=== PATIENT | female | born 1945 | race Caucasian/White ===

== ENCOUNTER → 2016-10-14 | Outpatient (CLI) | payer MEDICARE, BC ==
[2016-05-18 13:25] VITALS: BP 131/67
[~2016-10-14] MED LIST: ASPI325T4 PO; FEXO180T5 PO; GLIM4TAB2 PO; IBUP-1060 PO; LISI10TA2 PO; METF850T2 PO; MULT-245 PO; SIMV40TA3 PO
--- NOTE | 2016-10-15 15:00 | SLEEP ---
DATE OF STUDY: 10/14/2016 ATTENDING PHYSICIAN: Dr. Gwendolyn Delgadillo. The patient is 71 years old, who weighs 189 pounds with a BMI of 32. The patient's Media score was 9. Split night study was performed at [facility]. During the night of the study, the patient spent 414 minutes in the bed and slept for 338 minutes with a sleep efficiency of 81%. Sleep latency was 29 minutes with a REM latency of 217 minutes. Overall, sleep architecture showed normal stage 1 sleep, increased stage 2 sleep, normal slow wave and normal REM sleep. During the initial diagnostic portion of the study, the patient slept for 145 minutes. During this time, there were 13 obstructive apneas, no mixed and 1 central apneas. There were 143 hypopneas. The patient's apnea above the index was 65 per hour. The patient did not have REM sleep or supine sleep during the diagnostic portion. Review of EKG revealed a mean heart rate of 72 beats per minute, no sustained arrhythmias were observed. PLMS were seen at an index of 4 per hour and none caused EEG arousals. Mean oxygen saturation remained around 89% with the lowest of 82%. 91% of time, oxygen saturation remained between 80% and 89%. The patient met the criteria for CPAP initiation. It was started at 5 cm of water and titrated up to 15 cm of water. At the final pressure, the patient had 59 minutes of sleep. Supine sleep was seen throughout as well as REM sleep was observed. The patient's AHI was reduced to 0 per hour. Oxygen saturations remained in the mid-to-high 80s with the lowest saturation of 86%. The patient used small size nasal pillows. IMPRESSION: 1. Severe sleep apnea-hypopnea syndrome at an apnea-hypopnea index of 65 per hour. 2. Nocturnal hypoxia secondary to combination of an obstructive sleep apnea and suspected obesity hypoventilation syndrome. Not completely resolved with CPAP. 3. No clinically significant periodic limb movements during sleep. RECOMMENDATIONS: 1. CPAP at 15 cm of water completely eliminated the patient's sleep apnea and should be used on a nightly basis. 2. I would recommend a nocturnal oximetry study at the final pressure as an outpatient to assess the need for supplemental oxygen. 3. Weight loss is advised. 4. Avoid GOLD LEAF LAYER depressants. 5. Caution regarding driving until symptoms of sleep apnea resolve with the use of CPAP. KWAME LEZAMA MD DR: DAISY/shiva JOB#: [id number] / [id number] GWENDOLYN Yanes MD
== END | disposition home or self-care (01) ==
LOC: RT 18:42
PROVIDERS: ATTEND Physician Assistant
DX: G47.33 Obstructive sleep apnea (adult) (pediatric) (principal)
CPT/HCPCS: 95811

== ENCOUNTER → 2016-10-29 | Outpatient (CLI) | payer MEDICARE, BC ==
[2016-05-18 13:25] VITALS: BP 131/67
[~2016-10-29] MED LIST changes: +REGADENOSON 0.4 MG/5 ML DISP.SYRIN. IV ONE
--- NOTE | 2016-10-29 11:28 | CARD ---
APPROVED REPORT EXAM: Two-dimensional and M-mode echocardiogram with Doppler and color Doppler. Other Information Quality : Average Rhythm : NSR INDICATION Cardiac Disease: CAD 2D DIMENSIONS RVDd3.4 (2.9-3.5cm)Left Atrium(2D)3.9 (1.6-4.0cm) IVSd1.0 (0.7-1.1cm)Aortic Root(2D)2.7 (2.0-3.7cm) LVDd3.7 (3.9-5.9cm)LVOT Diameter2.0 (1.8-2.4cm) PWd1.0 (0.7-1.1cm)LVDs2.7 (2.5-4.0cm) FS (%) 26.8 %SV31.8 ml LVEF(%)53.1 (>50%) Aortic Valve AoV Peak Marvin.128.4cm/sAoV VTI21.2cm AO Peak GR.6.6mmHgLVOT Peak Marvin.110.4cm/s AO Mean GR.3mmHgAVA (VMAX)2.72cm2 Mitral Valve MV E Bepbmkzt72.3cm/sMV DECEL ZFSA185pc MV A Svctvvhi418.8cm/sE/A Ratio0.6 MV A Bigkiqlm045tl Pulmonary Vein S1 Qvnxpdwz73.0cm/sD2 Rdrcvjbf57.9cm/s PVa gjqwvviq45nakv LEFT VENTRICLE The left ventricle is normal size. There is normal left ventricular wall thickness. Left ventricle sy stolic function is normal. The Ejection Fraction is 55%. There is normal LV segmental wall motion. Ti ssue Doppler imaging reveals mild left ventricular diastolic dysfunction. Transmitral Doppler flow pa ttern is Grade I-abnormal relaxation pattern. There is no ventricular septal defect visualized. RIGHT VENTRICLE The right ventricle is normal size. The right ventricular systolic function is normal. ATRIA The left atrium size is normal. The right atrium size is normal. The interatrial septum is intact wit h no evidence for an atrial septal defect or patent foramen ovale as noted on 2-D or Doppler imaging. AORTIC VALVE The aortic valve is normal in structure and function. The aortic valve is trileaflet. Doppler and Col or Flow revealed no significant aortic regurgitation. There is no significant aortic valvular stenosi s. MITRAL VALVE The mitral valve is normal in structure and function. There is no mitral valve stenosis. Doppler and Color Flow revealed no mitral valve regurgitation noted. TRICUSPID VALVE The tricuspid valve is not well visualized. Doppler and Color Flow revealed no tricuspid valve regurg itation noted.Unable to assess PA pressure. There is no tricuspid valve stenosis. PULMONIC VALVE The pulmonic valve is not well visualized. Doppler and Color Flow revealed no pulmonic valvular regur gitation. There is no pulmonic valvular stenosis. GREAT VESSELS The aortic root is normal in size. Normal pulmonary venous flow (Doppler). The IVC is normal in size and collapses >50% with inspiration. PERICARDIAL EFFUSION There is no evidence of significant pericardial effusion. Critical Notification Critical Value: No <Conclusion> Left ventricle systolic function is normal. The Ejection Fraction is 55%. There is normal LV segmental wall motion. Transmitral Doppler flow pattern is Grade I-abnormal relaxation pattern. There is no evidence of significant pericardial effusion.
--- NOTE | 2016-10-29 12:55 | RAD ---
APPROVED REPORT Test Type: Pharmacological Stress Nurse/Tech: adan morrissey Test Indications: CAD Cardiac History: AFIB, CARDIAC STENTS, HTN, SEE EHR Medications: SEE EHR Medical History: SMOKER, DIABETES, SEE EHR Resting ECG: SR WITH FIRST DEGREE BLOCK Resting Heart Rate: 88 bpm Resting Blood Pressure: 115/70mmHg Pretest Chest Pain: No chest pain Nurse/Tech Notes LUNGS SOUNDS DIMINISHED, S1S2 WNL. Consent: The procedure was explained to the patient in lay terms. Informed consent was witnessed. Mukesh eout was entered into MySQL. History and Stress Test performed by WILL Camargo, DARELL (R) (N) Pharm. Details Pharmacologic stress testing was performed using 0.4mg per 5ml of regadenoson given intravenously ove r 7-10 seconds. Stress Symptoms COUGH INITIALLY, HEADACHE. POST EXERCISE Reason for Termination: Infusion complete Max HR: 116 bpm Max Blood Pressure: 138/63mmHg Chest Pain: No. Arrhythmia: No. ST Change: No. INTERPRETATION Stress EKG Conclusion: Baseline EKG showed sinus rhythm. No ischemic changes at peak stress. No arr hythmias. Imaging Protocol IMAGE PROTOCOL: Rest Tc-99m/stress Tc-99m 1 day Rest: Stress: Viability: Radiopharm.Tc99m VtmjgpselOk82q Sestamibi Rzra13dRz 33.6mCi Img Date 10/29/2016 10/29/2016 Inj-Img Cuqj23rqn. 45min. Rest Admin Site:IV - Right AntecubitalAdministrator:RT Tee (R)(N) Stress Admin Site: IV - Right AntecubitalAdministrator: WILL Camargo, DARELL (R)(N) STRESS DATA End Diast. Vol.59.0mlAv. Heart Nyya198.0bpm End Syst. Vol.8.0mlCO Index BSA0.0L/min Myocardial Emdb510.0gEject. Dydaqpcz92.0% Stress Rates Pk. Fill Rate6.52EDV/secLVtime Pk. Fill 154.09msec Pk. Empty Rate7.67ESV/secLVtime Pk. Eject92.75msec 06/16 Pk. Fill1.62EDV/sec Stress Scores Regional WT1.00Summed WT8.00 Regional WM0.00Summed WM2.00 Study quality was good. Left Ventricular size was Normal at Rest and Stress. Lung uptake was Normal. Left Ventricular ejection fraction is 86%. The rest and stress images show normal perfusion, normal contraction and thickening. LV Perf. Quant 17 Seg. SSS0.00 17 Seg. SRS0.00 17 Seg. SDS0.00 Stress Defect Extent (% LAD)0.00Rest Defect Extent (% LAD)0.00Rev. Defect Extent (% LAD)0.00 Stress Defect Extent (% LCX) 0.00Rest Defect Extent (% LCX)0.00Rev. Defect Extent (% LCX)0.00 Stress Defect Extent (% RCA)0.00Rest Defect Extent (% RCA)0.00Rev. Defect Extent (% RCA)0.00 Stress Defect Extent (% JARRETT)0.00Rest Defect Extent (% JARRETT)0.00Rev. Defect Extent (% JARRETT)0.00 Conclusion 1. Regadenoson cardioisotope stress test did not show any evidence of ischemia or infarct. 2. Normal left ventricular systolic function with ejection fraction calculated at 86%. 3. Low risk for cardiac events.
== END | disposition home or self-care (01) ==
LOC: NM 08:32
PROVIDERS: ATTEND Internal Medicine Cardiovascular Disease
DX: I25.10 Atherosclerotic heart disease of native coronary artery without angina pectoris (principal)
CPT/HCPCS: 78452; 93017; 93306; 96374; 96375; 96376; A9500; J2785

== ENCOUNTER → 2018-04-28 | Outpatient (CLI) | payer MEDICARE, BC ==
[2016-05-18 13:25] VITALS: BP 131/67
[~2018-04-28] MED LIST changes: -ASPI325T4 PO; +ASPI325T8 PO; +FEXO180T16 PO; -FEXO180T5 PO; -METF850T2 PO; +METF850T8 PO; -REGADENOSON 0.4 MG/5 ML DISP.SYRIN. IV ONE
--- NOTE | 2018-04-28 11:10 | CARD ---
MR#: [id number] Date of Study: 04/28/2018 Ordering Physician: JOAQUINA BRISENO, Referring Physician: JOAQUINA BRISENO Tech: Shasta Mack RDCS APPROVED REPORT EXAM: Two-dimensional and M-mode echocardiogram with Doppler and color Doppler. Other Information Quality : Fair Technically limited study due to body habitus. INDICATION Cardiac Disease: CAD RISK FACTORS Obesity Smoking 2D DIMENSIONS RVDd2.9 (2.9-3.5cm)Left Atrium(2D)2.7 (1.6-4.0cm) IVSd1.0 (0.7-1.1cm)Aortic Root(2D)2.7 (2.0-3.7cm) LVDd3.9 (3.9-5.9cm)LVOT Diameter2.0 (1.8-2.4cm) PWd1.0 (0.7-1.1cm)LVDs2.0 (2.5-4.0cm) FS (%) 30.0 %SV51.7 ml LVEF(%)60.0 (>50%) Aortic Valve AoV Peak Marvin.154.0cm/sAoV VTI25.9cm AO Peak GR.9.5mmHgLVOT Peak Marvin.138.4cm/s LVOT VTI 23.03cmAO Mean GR.5mmHg DWAYNE (VMAX)2.00fr5ADV (VTI)2.78cm2 Mitral Valve MV E Rvokokjy31.7cm/sMV DECEL DWSP341pz MV A Bblqljdw37.2cm/sMV NGY74ay E/A Ratio0.6MVA (PHT)4.80cm2 TDI E/Lateral E'7.2E/Medial E'10.0 Pulmonary Vein S1 Hfnkmdlp16.9cm/sD2 Dsdlvufh93.6cm/s LEFT VENTRICLE The left ventricle is normal size. There is normal left ventricular wall thickness. The left ventricu lar systolic function is normal and the ejection fraction is within normal range. The Ejection Fracti on is 60-65%. There is normal LV segmental wall motion. Transmitral Doppler flow pattern is Grade I-a bnormal relaxation pattern. RIGHT VENTRICLE The right ventricle is normal size. The right ventricular systolic function is normal. ATRIA The left atrium size is normal. The right atrium size is normal. The interatrial septum is intact wit h no evidence for an atrial septal defect or patent foramen ovale as noted on 2-D or Doppler imaging. AORTIC VALVE Not well visualized. Doppler and Color Flow revealed no significant aortic regurgitation. There is no significant aortic valvular stenosis. MITRAL VALVE The mitral valve is calcified but opens well. There is no evidence of mitral valve prolapse. There is no mitral valve stenosis. Doppler and Color Flow revealed no mitral valve regurgitation noted. TRICUSPID VALVE Not well visualized. Doppler and Color Flow revealed no tricuspid valve regurgitation noted. There is no tricuspid valve stenosis. PULMONIC VALVE The pulmonic valve is not well visualized. Doppler and Color Flow revealed no pulmonic valvular regur gitation. There is no pulmonic valvular stenosis. GREAT VESSELS The aortic root is normal in size. The ascending aorta is normal in size. The IVC is normal in size a nd collapses >50% with inspiration. PERICARDIAL EFFUSION There is no evidence of significant pericardial effusion. Critical Notification Critical Value: No <Conclusion> The left ventricular systolic function is normal and the ejection fraction is within normal range. Th e Ejection Fraction is 60-65%. There is normal LV segmental wall motion. Technically difficult study Signed by : Higinio Francisco, Electronically Approved : 04/28/2018 11:08:53
--- NOTE | 2018-04-28 13:33 | RAD ---
MR#: [id number] Date of Study: 04/28/2018 Ordering Physician: JOAQUINA BRISENO, Referring Physician: JOAQUINA BRISENO, Tech: Debby Em, DEE, RVT, RTR APPROVED REPORT Patient Location: OUT-PATIENT Indications PAD Leg fatigue when walking;Occasional leg pain VELOCITY AND DOPPLER WAVEFORM ANALYSIS RIGHT cm/secWaveformSeverity LEFT cm/secWaveform Severity pCFA 269.9pCFA 229.7 dCFA 177.4dCFA Prof Fem Art. 113.4Prof Fem Art. 133.6 Fem Art Prox. 122.6Fem Art Prox. 171.2 Fem Art Mid. 120.3Fem Art Mid. 175.8 Fem Art Dist. 239.6Fem Art Dist. 277.6 Pop Art(AK) 70.1Pop Art(AK) 65.7 MATERIALS TECH Dist. 105.8PTA Dist. 77.3 Per Art Prox. 74.5Per Art Prox. 34.2 ENRIQUE Prox. 180.0ATA Prox. 56.0 DPA 40.9DPA 56.5 Findings Grayscale images of the bilateral lower extremity arterial vessels revealed diffuse atherosclerotic p laque of moderate degree. Spectral waveforms in the right common femoral artery are suggestive of more proximal stenosis of gurjit roximately 50%. The spectral waveforms in the right profunda, superficial femoral and popliteal arter ies demonstrate mild elevation suggestive of a proximally 50% stenosis. Below the knee there is three -vessel runoff with monophasic waveforms again suggestive of diffuse atherosclerotic disease but no f ocal stenosis is identified. On the left similar to the right there are elevated velocities in the common femoral artery suggestiv e of inflow disease in the external iliac artery of approximately 50%. The left superficial femoral a rtery has elevated velocities suggestive of 50% stenosis. Below the knee there is three-vessel runoff but with diminished blunted velocities. Critical Notification Critical Value: No <Conclusion> 1. Diffuse bilateral inflow and outflow disease of moderate degree. 2. Likely focal greater than 50% stenosis involving the left SFA. Signed by : Higinio Francisco, Electronically Approved : 04/28/2018 13:32:17
== END | disposition home or self-care (01) ==
LOC: ECHO 10:00
PROVIDERS: ATTEND Internal Medicine Cardiovascular Disease
DX: I25.10 Atherosclerotic heart disease of native coronary artery without angina pectoris (principal); I73.9 Peripheral vascular disease, unspecified; E66.9 Obesity, unspecified; F17.200 Nicotine dependence, unspecified, uncomplicated
CPT/HCPCS: 93306; 93923

== ENCOUNTER 2018-06-27 06:29 | Observation (INO) | payer MEDICARE, BC ==
[2018-06-27] VITALS (17 sets, daily range): BP systolic 124–179; BP diastolic 61–89
[~2018-06-27] VITALS: Ht 161.3 cm; Wt 84.1 kg
[2018-06-27] MEDS ORDERED: METF850T8 PO (06:58)
[2018-06-27] MEDS ORDERED: DICL75TA PO (06:58)
[2018-06-27] MEDS ORDERED: DILT180C29 PO (06:58)
[2018-06-27] MEDS ORDERED: ASPI-630 PO (06:58)
[2018-06-27 07:08] LABS: HEMATOCRIT 42.3 % (36.0-47.0); HEMOGLOBIN 14.7 g/dL (12.0-15.5); RED BLOOD COUNT 4.41 x10^6/uL (3.50-5.40); RED CELL DISTRIBUTION WIDTH 13.4 % (11.5-14.5); WHITE BLOOD COUNT 10.8 x10^3/uL (4.0-11.0)
[2018-06-27] MEDS ORDERED: IODIXANOL 320 MG/ML 100 ML VIAL. ONE (07:16)
[2018-06-27] MEDS ORDERED: LIDOCAINE 1% Multi-Dose 20 ML VIAL. ONE (07:16)
[2018-06-27] MEDS ORDERED: MIDAZOLAM HCL/PF 5 MG/5 ML VIAL. ONE (07:23)
[2018-06-27] MEDS ORDERED: HEPARIN for IV BOLUS 10,000 UNIT/10 ML VIAL. ONE ×2 (07:23→08:19)
[2018-06-27] MEDS ORDERED: fentaNYL PF VIAL 100 MCG/2 ML VIAL ONE ×2 (07:23→09:12)
[2018-06-27 07:26] LABS: CALCIUM 9.9 mg/dL (8.5-10.1); CREATININE 1.1 mg/dL (0.6-1.0); GFR 48.6; POTASSIUM 4.1 mmol/L (3.5-5.1); PROTHROMBIN TIME PATIENT 13.4 SEC (11.7-14.0)
[2018-06-27] MEDS ORDERED: MIDAZOLAM HCL/PF 5 MG/5 ML VIAL. IV ONE (07:30)
[2018-06-27] MEDS ORDERED: fentaNYL PF VIAL 100 MCG/2 ML VIAL IV ONE ×2 (07:30→10:15)
[2018-06-27] MEDS ORDERED: IODIXANOL 320 MG/ML 100 ML VIAL. IART ONE (07:30)
[2018-06-27] MEDS ORDERED: CONTRAST GIVEN. MC PRN (07:45)
[2018-06-27] MEDS ORDERED: LIDOCAINE 1% Multi-Dose 20 ML VIAL. INJ ONE (08:15)
[2018-06-27] MEDS ORDERED: dilTIAZem IV PUSH 25 MG/5 ML VIAL ONE (08:19)
[2018-06-27] MEDS ORDERED: NITROGLYCERIN 4 MG/20 ML SYRINGE for CATH LAB. ONE (08:19)
[2018-06-27] MEDS ORDERED: HEPARIN for IV BOLUS 10,000 UNIT/10 ML VIAL. IV ONE (08:30)
[2018-06-27] MEDS ORDERED: CLOPIDOGREL BISULFATE 75 MG TABLET ONE (09:23)
[2018-06-27] MEDS ORDERED: NITROGLYCERIN 200 MCG/2 ML SYRINGE FOR CATH/VASC LAB. IART ONE (09:30)
[2018-06-27] MEDS ORDERED: IV NORMAL SALINE 1000ML BAG 1,000 ML IV SCH (09:30)
[2018-06-27] MEDS ORDERED: NITROGLYCERIN 200 MCG/2 ML SYRINGE FOR CATH/VASC LAB. ONE (09:50)
--- NOTE | 2018-06-27 09:52 | CARD ---
MR#: [id number] Date of Study: 06/27/2018 Ordering Physician: JOAQUINA AGUILERA, Referring Physician: JOAQUINA AGUILERA Tech: Arminda Cha RTR APPROVED REPORT Technologist: Arminda Cha RTR Nurse: Mildred Briseno R.N. Procedure(s) performed: 1. Aortogram with bilateral lower extremity runoff 2. Successful orbital atherectomy/ELEVATOR CONSTRUCTOR/stent placement to the left superficial femoral artery Moderate Sedation time: 104 minutes INDICATION The indication(s) include : Peripheral vascular disease with claudication. PROCEDURE NARRATIVE After explaining the risks, benefits and alternative options, informed consent was obtained from julian ent. Patient was brought to the cardiac [facility] and her right groin was prepped and draped in the us ual fashion. 20 mL of 2% lidocaine was infiltrated into the skin and subcutaneous tissues for local a nesthesia. Arterial access was obtained in the right common femoral artery and a 5 Lebanese sheath was inserted. 5 Lebanese pigtail catheter was used to perform aortogram with bilateral lower extremity runo ff. The following findings were noted. FINDINGS 1. No significant stenosis involving the distal descending aorta 2. No significant stenosis involving bilateral common and external iliac arteries 3. No significant stenosis involving bilateral common femoral arteries 4. The left superficial femoral artery showed long 80-90% stenosis involving the proximal, mid and m id to distal segments. The right superficial femoral artery did not show any significant stenosis. 5. The popliteal arteries did not show any significant stenosis bilaterally. There is three-vessel r unoff below the knee in the proximal segments. The mid to distal segments were not well visualized du e to motion artifact. INTERVENTION The sheath in the right groin was exchanged to 45 cm 6 Lebanese destination sheath that was advanced ov er the aortic mariana with the help of across oval catheter and the tip was positioned in the left com mon femoral artery. The long lesion involving the left superficial femoral artery was crossed with a viper guidewire. Multiple orbital atherectomy passes were then performed using CSI 1.5 diamondback at herectomy catheter. The lesion was then dilated with a 5.5 x 1 50 mm Erickson [place] balloon. The wire was then exchanged to a 0.014 inch command wire and the proximal to midsegment of the left SFA was tr eated successfully with a 5.5 x 1 20 mm Erickson Supera self-expanding stent. Follow-up angiography rocío wed resolution of the stenosis to 0%. Patient tolerated the procedure well. Hemostasis was achieved using Perclose suture closure device. There were no immediate complications. Conclusion 1. Long 80-90% stenosis involving the left superficial femoral artery 2. Successful orbital atherectomy/ELEVATOR CONSTRUCTOR/stent placement to left SFA Recommendations 1. Aspirin 81 mg daily 2. Plavix 75 mg daily 3. Vascular risk factor modification including smoking cessation Signed by : Joaquina Aguilera, Electronically Approved : 06/27/2018 09:50:53
--- NOTE | 2018-06-27 09:54 | PDOC ---
MODERATE SEDATION ASSESSMENT RISKS/ALTERNATIVES Risks/Alternatives Risks and alternatives of this type of sedation and procedure discussed with: RISK/ALTERNATIVES: Patient H & P ON CHART H & P H & P on chart and reviewed for co-morbid conditions and appropriate labs. H&P ON CHART: Yes STATUS PREG STATUS ASSESSED: N/A MEDS/ALLERGIES REVIEWED Meds/Allergies Reviewed Medications and Allergies including time and route of recently administered narcotics and sedatives. MEDS/ALLERGIES REVIEWED: Yes ASA RATING ASA RATING: II AIRWAY ASSESSMENT Airway Assessment Airway patency, oral function limitations, presence of caps, crowns, dentures, partials, and ability to extend neck assessed. AIRWAY ASSESSMENT: Yes MALLAMPATI SCORE MALLAMPATI SCORE: II PRE-SEDATION ASSESSMENT PRE-SEDATION ASSESSMENT: Yes JOAQUINA BRISENO MD Jun 27, 2018 09:54
[2018-06-27] MEDS ORDERED: CLOPIDOGREL BISULFATE 75 MG TABLET PO ONE ×2 (10:00→12:45)
[2018-06-27] MEDS ORDERED: ACETAMINOPHEN 325 MG TABLET. PO PRN (10:00)
[2018-06-27] MEDS ORDERED: MAGNESIUM HYDROXIDE 2,400 MG/30 ML ORAL.SUSP. PO PRN (10:00)
[2018-06-27] MEDS ORDERED: IV 1/2 NORMAL SALINE 1,000 ML IV SCH (10:00)
[2018-06-27] MEDS ORDERED: ONDANSETRON PF 4 MG/2 ML VIAL. ONE (10:04)
[2018-06-27] MEDS ORDERED: ONDANSETRON PF 4 MG/2 ML VIAL. IV ONE (10:30)
[2018-06-27] MEDS ORDERED: FAMOTIDINE 20 MG/2 ML VIAL ONE (11:07)
[2018-06-27] MEDS ORDERED: FAMOTIDINE 20 MG/2 ML VIAL IVP ONE (11:15)
[2018-06-27] MEDS ORDERED: PROCHLORPERAZINE 10 MG/2 ML VIAL. ONE (13:25)
[2018-06-27] MEDS ORDERED: PROCHLORPERAZINE 10 MG/2 ML VIAL. IM ONE (13:30)
[2018-06-27] MEDS: ASPIRIN ENTERIC COATED 81 MG TABLET.DR. PO SCH (16:36)
[2018-06-28 03:00] VITALS: BP 152/86
[2018-06-28 07:00] VITALS: BP 167/74
[2018-06-28] MEDS ORDERED: CLOPIDOGREL BISULFATE 75 MG TABLET PO SCH (08:00)
[2018-06-28] MEDS: ASPIRIN ENTERIC COATED 81 MG TABLET.DR. PO SCH (08:36)
[2018-06-28] MEDS ORDERED: LISINOPRIL 10 MG TABLET PO SCH (09:00)
[2018-06-28] MEDS ORDERED: DICLOFENAC SODIUM PO SCH (09:00)
[2018-06-28] MEDS ORDERED: MULTIVITAMIN with MINERAL TABLET. PO ONE (09:00)
[2018-06-28] MEDS ORDERED: MULTIVITAMIN with MINERAL TABLET. PO SCH (09:00)
[2018-06-28] MEDS ORDERED: GLIMEPIRIDE 2 MG TABLET. PO SCH (09:00)
[2018-06-28 11:00] VITALS: BP 150/67
[2018-06-28] MEDS ORDERED: CLOP75TA PO (12:01)
--- NOTE | 2018-06-28 12:04 | PDOC3 ---
TAMARA RAHMAN GRAVE CLEANER 06/28/18 1204: Discharge Summary Visit Information Date of Admission: Jun 27, 2018 Date of Discharge: Jun 28, 2018 Admitting Diagnosis: Severe PAD with claudication Final Diagnosis Severe PAD with percutaneous revascularization, CAD, COPD Brief Hospital Course Allergies Allergies Coded Allergies Type Severity Reaction Last Updated Verified Penicillins Allergy Intermediate swelling 04/17/15 Yes Sulfa (Sulfonamide Antibiotics) Allergy Intermediate swelling 04/17/15 Yes neomycin Allergy Unknown 05/18/16 Yes Vital Signs Vital Signs Date Time Temp Pulse Resp B/P (MAP) Pulse Ox O2 Delivery O2 Flow Rate FiO2 06/28/18 11:00 98.4 85 18 150/67 (94) 94 Room Air 98.4 06/27/18 12:35 2.0 Lab Results Laboratory Tests Test 06/27/18 06:55 06/28/18 00:02 06/28/18 06:03 White Blood Count 10.8 x10^3/uL (4.0-11.0) Red Blood Count 4.41 x10^6/uL (3.50-5.40) Hemoglobin 14.7 g/dL (12.0-15.5) Hematocrit 42.3 % (36.0-47.0) Mean Corpuscular Volume 96 fL (79-100) Mean Corpuscular Hemoglobin 33 pg (25-35) Mean Corpuscular Hemoglobin Concent 35 g/dL (31-37) Red Cell Distribution Width 13.4 % (11.5-14.5) Platelet Count 352 x10^3/uL (140-400) Prothrombin Time 13.4 SEC (11.7-14.0) Prothromb Time International Ratio 1.1 (0.8-1.1) Sodium Level 140 mmol/L (136-145) Potassium Level 4.1 mmol/L (3.5-5.1) Chloride Level 106 mmol/L (98-107) Carbon Dioxide Level 25 mmol/L (21-32) Anion Gap 9 (6-14) Blood Urea Nitrogen 18 mg/dL (7-20) Creatinine 1.1 mg/dL (0.6-1.0) Estimated GFR (Cockcroft-Gault) 48.6 Glucose Level 130 mg/dL (70-99) Calcium Level 9.9 mg/dL (8.5-10.1) Glucose (Fingerstick) 141 mg/dL (70-99) 112 mg/dL (70-99) Laboratory Tests Test 06/28/18 00:02 06/28/18 06:03 Glucose (Fingerstick) 141 mg/dL (70-99) 112 mg/dL (70-99) Brief Hospital Course Ms. Sandoval is a 72 old female admitted for planned LLE revascularization due to severe PAD with claudications. Successful orbital atherectomy/AIRCRAFT LAUNCH AND RECOVERY TECHNICIAN/stent placement to left SFA via right transfemoral approach. No immediate complications. Right groin arteriotomy site intact, no swelling, hematoma or erythema and neurovascular status to bilateral LE intact. AOx3, VSS. She is slightly wheezy as she has not received her advair/albuterol. Will provide with labuterol nebulizer prior to DC otherwise no complains of CP or SOA and ambulatory without difficulty. Her CAD is clinically stable. She does continue to smoke tobacco and discussion regarding cessation hasve been reinforced and fexercise progressive increase have been encouraged. Continue homme medications with addition of plavix and follow up in office in 4 weeks. Discharge Information Condition at Discharge: Stable Follow Up: Weeks (4) Disposition/Orders: D/C to Home Scheduled Aspirin (Aspirin) 81 Mg Tab.chew, 1 TAB PO DAILY for heart health, #30 Ref 3 ( Reported) Entered as Reported by: EFREN ACOSTA on 06/27/18657 Last Taken: Unknown Dose on 06/26/18 Last Action: New Order on 06/27/18657 by EFREN ACOSTA Clopidogrel Bisulfate (Clopidogrel) 75 Mg Tablet, 75 MG PO DAILYWBKFT for stent , #30 Prescribed by: TAMARA RAHMAN on 06/28/18 1201 Diclofenac Sodium (Diclofenac Sodium) 75 Mg Tablet.dr, 75 MG PO BID for pain, # 60 Ref 1 (Reported) Entered as Reported by: EFREN ACOSTA on 06/27/18657 Last Taken: Unknown Dose on 06/26/18 Last Action: Edited on 06/28/18 111 by Allyson Davis [facility] Diltiazem Hcl (Diltiazem 24HR Cd) 180 Mg Cap.er.24h, 1 CAP PO DAILY for BP/Rate control, #30 Ref 5 (Reported) Entered as Reported by: EFREN ACOSTA on 06/27/18657 Last Taken: Unknown Dose on 06/26/18 Last Action: Converted on 06/28/18800 by MAYI PUENTE Fexofenadine Hcl (Fexofenadine Hcl) 180 Mg Tablet, 1 TAB PO DAILY, #30 Ref 5 ( Reported) Entered as Reported by: CHAITANYA DUNCAN on 05/18/16658 Last Taken: Unknown Dose on 06/26/18 Last Action: Reviewed on 06/27/18657 by EFREN ACOSTA Glimepiride (Glimepiride) 4 Mg Tablet, 1 TAB PO DAILY, #30 Ref 5 (Reported) Entered as Reported by: VICKI MORRISON on 04/30/14822 Last Taken: Unknown Dose on 06/26/18 Last Action: Converted on 06/28/18800 by MAYI PUENTE Lisinopril (Lisinopril) 10 Mg Tablet, 1 TAB PO DAILY, #30 Ref 5 (Reported) Entered as Reported by: VICKI MORRISON on 04/30/14822 Last Taken: Unknown Dose on 06/26/18 Last Action: Continued on 06/28/18800 by MAYI PUENTE Metformin Hcl (Metformin Hcl) 850 Mg Tablet, 850 MG PO BIDWMEALS for ANTI- DIABETIC, Ref 0 (Reported) Entered as Reported by: EFREN ACOSTA on 06/27/18657 Last Taken: Unknown Dose on 06/26/18 Last Action: New Order on 06/27/18657 by EFREN ACOSTA Multivitamin (Multi Vitamin Daily) 1 Each Tablet, 1 EACH PO DAILY, (Reported) Entered as Reported by: CHAITANYA DUNCAN on 05/18/16658 Last Taken: Unknown Dose on 06/26/18 Last Action: Converted on 06/28/18800 by MAYI PUENTE Simvastatin (Simvastatin) 40 Mg Tablet, 1 TAB PO QHS, #30 Ref 5 (Reported) Entered as Reported by: VICKI MORRISON on 04/30/14822 Last Taken: Unknown Dose on 06/26/18 Last Action: Last Taken Edited on 657 by EFREN ACOSTA Discontinued Medications Aspirin (Aspirin) 325 Mg Tablet, 1 TAB PO DAILY, #30 Ref 5 (Reported) Entered as Reported by: CHAITANYA DUNCAN on 05/18/1659 Last Action: Discontinued on 06/27/18657 by EFREN ACOSTA Ibuprofen (Ibuprofen) 800 Mg Tablet, 1 TAB PO TID, #90 Ref 1 (Reported) Entered as Reported by: VICKI TAMIKO on 04/30/1423 Last Action: Reviewed on 06/27/18657 by EFREN ACOSTA Patient Instructions Patient Instructions GENERAL INSTRUCTIONS: 1. Your dressing should be removed prior to leaving the hospital. 2. It is OK to shower the day after your procedure. 3. If you received stents, be sure to carry your stent information card with you in your wallet/purse at all times. 4. Call the office immediately at [phone] if you notice any fever or if there is redness, worsening tenderness/pain, increased bruising, or drainage from the puncture site. 5. Should you have bleeding from the site, lie down immediately & put pressure on the site. The pressure should be hard enough to stop the bleeding. Have the nearest person call 911. DO NOT try to drive to the ER with active bleeding. 6. If you notice a change in color, coolness to touch, or loss of feeling in the affected extremity, come to the emergency room. Please have someone drive you or call 911 if no one is available. DO NOT drive yourself. 7. If you normally take glucophage (metformin), please do not take this medicine for 48 hours following your procedure. 8. DO NOT STOP TAKING YOUR PLAVIX OR ASPIRIN UNLESS IT IS CLEARED BY A FAMILY SOCIOLOGIST OF YOUR TRAFFIC ADMINISTRATOR AT OUR OFFICE. 9. QUIT SMOKING: the [place] [employer], [place] [employer], & [place] [employer] have cessation resources available on their websites 10. Please have someone available to drive you home from the hospital as you may be limited by sedation medications given during the procedure. Femoral (Groin) access: 1. Do no lifting, pushing, pulling, bending, stooping, or recurrent stair climbing for 3 days following your procedure. 2. Once past the first 3 days, do not do any HEAVY exertion or lifting for one week following the procedure. No gym workouts, running, lifting greater than a gallon of milk, etc 3. Do not submerge in bath or pool for one week. Call the office at [phone] for any questions or concerns. JOAQUINA BRISENO MD 06/29/18 0923: Discharge Summary Brief Hospital Course Brief Hospital Course Patient seen and examined 06/28/18. Agree with PROCESS CONTROL ENGINEER's assessment and plan. Patient underwent successful atherectomy/AIRCRAFT LAUNCH AND RECOVERY TECHNICIAN/stent placement to left SFA yesterday Right groin looked good and patient was hemodynamically stable at the time of discharge Importance of smoking cessation reemphasized TAMARA RAHMAN APRN Jun 28, 2018 12:04 JOAQUINA BRISENO MD Jun 29, 2018 09:23
[2018-06-28] MEDS ORDERED: IPRATRPIUM/ALBUTEROL 0.5/2.5MG 3 ML NEBU. NEB ONE (12:30)
[2018-06-28] MEDS ORDERED: DICLOFENAC SODIUM 25 MG TABLET.DR PO SCH (17:00)
== END 2018-06-28 13:35 | disposition home or self-care (01) ==
LOC: CCL 06:29 → 2 SOUTH 12:01
PROVIDERS: ADMIT Internal Medicine Cardiovascular Disease; ATTEND Internal Medicine Cardiovascular Disease
DX: I70.211 Atherosclerosis of native arteries of extremities with intermittent claudication, right leg (principal); I25.10 Atherosclerotic heart disease of native coronary artery without angina pectoris; J44.9 Chronic obstructive pulmonary disease, unspecified; F17.200 Nicotine dependence, unspecified, uncomplicated; Z79.82 Long term (current) use of aspirin; Z79.01 Long term (current) use of anticoagulants
CPT/HCPCS: 36415; 37227; 75630; 80048; 82962; 85027; 85610; 94640; 96372; 96374; 96375; C1724; C1769; C1771; C1876; C1885; C1892; G0269; G0378; G0379; J0780; J1644; J2250; J2405; J3010; J3490; J7030; J7620; 99152; 99153

== ENCOUNTER → 2019-01-12 | Outpatient (CLI) | payer MEDICARE, BC ==
[~2019-01-12] MED LIST changes: +ASPI-630 PO; +CLOP75TA PO; +DICL75TA PO; +DILT180C29 PO; +REGADENOSON 0.4 MG/5 ML DISP.SYRIN. IV ONE
--- NOTE | 2019-01-12 12:48 | RAD ---
MR#: [id number] Date of Study: 01/12/2019 Ordering Physician: JOAQUINA BRISENO Referring Physician: CATHERINE PERKINS Tech: ESAU Kirby APPROVED REPORT Test Type: Pharmacological Stress Nurse/Tech: Sruthi Avalos R.N. Test Indications: CAD Cardiac History: Family history, Hypertension, Diabetes, 3 stents Medications: See Electronic Medical Record Medical History: See Electronic Medical Record Resting ECG: NSR Resting Heart Rate: 76 bpm Resting Blood Pressure: 129/64mmHg Pretest Chest Pain: No chest pain Nurse/Tech Notes S1S2, coarse breath sounds gloria Consent: The procedure was explained to the patient in lay terms. Informed consent was witnessed. Mukesh eout was entered into [facility] [employer] [facility]. History and Stress Test performed by Sruthi Avalos R.N. Pharm. Details Pharmacologic stress testing was performed using 0.4mg per 5ml of regadenoson given intravenously ove r 7-10 seconds. Stress Symptoms Dyspnea POST EXERCISE Reason for Termination: Infusion complete Target HR: 123 Max HR: 123 bpm Max Blood Pressure: 139/61mmHg Blood Pressure response to exercise: Normal blood pressure response during stress. Chest Pain: No. Arrhythmia: No. ST Change: No. INTERPRETATION Stress EKG Conclusion: Baseline EKG showed sinus rhythm with RBBB. No ischemic changes at peak stres s. No arrhythmias. Imaging Protocol IMAGE PROTOCOL: Rest Tc-99m/stress Tc-99m 1 day Rest: Stress: Viability: Radiopharm.Tc99m JzdbrybzfWd49p Sestamibi Vyqm35eHz 33mCi Duration 13.5min. 13.5min. Img Date 01/12/2019 01/12/2019 Inj-Img [id number]. 60min. Rest Admin Site:IV - Right AntecubitalAdministrator:ESAU Kirby Stress Admin Site: IV - Right AntecubitalAdministrator: WILL Camargo, ARRT (R)(N) STRESS DATA End Diast. Vol.67.0mlLVEDV index BSA37.0ml End Syst. Vol.11.0mlLVESV index BSA6.0ml Myocardial Urar929.0gEject. Ktvkuioa11.0% Stress Scores Regional WT0.00Summed WT2.00 Regional WM0.00Summed WM0.00 Study quality was good. Left Ventricular size was Normal at Rest and Stress. Lung uptake was . Left Ventricular ejection fraction is 84%. The rest and stress images show normal perfusion, normal contraction and thickening. LV Perf. Quant 17 Seg. SSS4.00 17 Seg. SRS5.00 17 Seg. SDS1.00 Stress Defect Extent (% LAD)3.80Rest Defect Extent (% LAD)4.40Rev. Defect Extent (% LAD)0.00 Stress Defect Extent (% LCX) 1.30Rest Defect Extent (% LCX)0.00Rev. Defect Extent (% LCX)0.00 Stress Defect Extent (% RCA)3.30Rest Defect Extent (% RCA)14.40Rev. Defect Extent (% RCA)0.00 Stress Defect Extent (% JARRETT)7.00Rest Defect Extent (% JARRETT)8.50Rev. Defect Extent (% JARRETT)0.00 Conclusion 1. Regadenoson cardioisotope stress test did not show any evidence of ischemia or infarct. 2. Normal left ventricular systolic function with ejection fraction calculated at 84%. 3. Low risk for cardiac events. Signed by : Joaquina Briseno, Electronically Approved : 01/12/2019 12:47:57
== END | disposition home or self-care (01) ==
LOC: NM 09:30
PROVIDERS: ATTEND Internal Medicine Cardiovascular Disease
DX: I25.10 Atherosclerotic heart disease of native coronary artery without angina pectoris (principal); F17.210 Nicotine dependence, cigarettes, uncomplicated
CPT/HCPCS: 78452; 93017; A9500; J2785

== ENCOUNTER → 2019-07-20 | Outpatient (CLI) | payer MEDICARE, BC ==
[~2019-07-20] MED LIST changes: -GLIM4TAB2 PO; +GLIM4TAB8 PO; -REGADENOSON 0.4 MG/5 ML DISP.SYRIN. IV ONE; +SIMV40TA18 PO; -SIMV40TA3 PO
--- NOTE | 2019-07-20 14:07 | CARD ---
MR#: [id number] Date of Study: 07/20/2019 Ordering Physician: JOAQUINA BRISENO, Referring Physician: JOAQUINA BRISENO Tech: Azar Keller RDCS APPROVED REPORT EXAM: Two-dimensional and M-mode echocardiogram with Doppler and color Doppler. INDICATION CAD RISK FACTORS Hypertension Hyperlipidemia Diabetes Smoking 2D DIMENSIONS RVDd3.0 (2.9-3.5cm)IVSd1.4 (0.7-1.1cm) Aortic Root(2D)2.7 (2.0-3.7cm)LVDd4.1 (3.9-5.9cm) LVOT Diameter1.8 (1.8-2.4cm)PWd1.4 (0.7-1.1cm) LVDs3.1 (2.5-4.0cm)FS (%) 26.0 % SV38.9 mlLVEF(%)51.6 (>50%) Aortic Valve AoV Peak Marvin.134.4cm/Dona Peak GR.7.2mmHg LVOT Peak Marvin.123.9cm/sAVA (VMAX)2.41cm2 Mitral Valve MV PGJ09yeZZX (PHT)5.01cm2 Pulmonary Valve PV Peak Hgutrubw528.5cm/s Tricuspid Valve RAP ZNHGWCMG4nhIv LEFT VENTRICLE The left ventricle is normal size. There is mild concentric left ventricular hypertrophy. The left ve ntricular systolic function is normal and the ejection fraction is within normal range. The Ejection Fraction is 60-65%. There is normal LV segmental wall motion. There is no ventricular septal defect v isualized. RIGHT VENTRICLE The right ventricle is mildly dilated. The right ventricular systolic function is normal. ATRIA The left atrium size is normal. The right atrium is mildly dilated. The interatrial septum is intact with no evidence for an atrial septal defect or patent foramen ovale as noted on 2-D or Doppler imagi ng. AORTIC VALVE The aortic valve is normal in structure and function. Doppler and Color Flow revealed no significant aortic regurgitation. There is no significant aortic valvular stenosis. MITRAL VALVE The mitral valve is normal in structure and function. There is no evidence of mitral valve prolapse. There is no mitral valve stenosis. Doppler and Color Flow revealed no mitral valve regurgitation note d. TRICUSPID VALVE The tricuspid valve is normal in structure and function. Doppler and Color Flow revealed no tricuspid valve regurgitation noted. Unable to assess PA pressure. There is no tricuspid valve stenosis. PULMONIC VALVE The pulmonic valve is not well visualized. Doppler and Color Flow revealed no pulmonic valvular regur gitation. There is no pulmonic valvular stenosis. GREAT VESSELS The aortic root is normal in size. The ascending aorta is normal in size. The IVC is normal in size a nd collapses >50% with inspiration. PERICARDIAL EFFUSION There is no pleural effusion. There is a small pericardial effusion. Critical Notification Critical Value: No <Conclusion> The left ventricular systolic function is normal and the ejection fraction is within normal range. Th e Ejection Fraction is 60-65%. There is normal LV segmental wall motion. There is a small pericardial effusion. Signed by : Higinio Francisco, Electronically Approved : 07/20/2019 14:07:01
== END | disposition home or self-care (01) ==
LOC: ECHO 12:36
PROVIDERS: ATTEND Internal Medicine Cardiovascular Disease
DX: I31.3 Pericardial effusion (noninflammatory) (principal); I51.7 Cardiomegaly; I25.10 Atherosclerotic heart disease of native coronary artery without angina pectoris
CPT/HCPCS: 93306

== ENCOUNTER → 2019-11-09 | Outpatient (CLI) | payer MEDICARE, BC ==
--- NOTE | 2019-11-09 11:34 | RAD ---
EXAM: Right lower extremity venous Doppler sonogram. HISTORY: Pain and swelling. TECHNIQUE: Poon scale and color Doppler sonographic evaluation of the right lower extremity veins with spectral waveform analysis was performed. FINDINGS: There is normal color flow, normal compressibility and there are normal spectral waveforms in the common femoral, superficial femoral, popliteal, posterior tibial and greater saphenous veins. The calf veins are not well seen due to soft tissue edema. IMPRESSION: No Doppler evidence of lower extremity deep venous thrombosis. Electronically signed by: Digna Mesa MD (11/09/2019 11:31 AM) [id number]
== END | disposition home or self-care (01) ==
LOC: US 09:59
PROVIDERS: ATTEND Internal Medicine Cardiovascular Disease
DX: M79.89 Other specified soft tissue disorders (principal)
CPT/HCPCS: 93971

== ENCOUNTER → 2020-04-30 | Outpatient (CLI) | payer MEDICARE, BC ==
[~2020-04-30] MED LIST changes: +REGADENOSON 0.4 MG/5 ML DISP.SYRIN. IV ONE
--- NOTE | 2020-04-30 13:57 | RAD ---
MR#: [id number] Date of Study: 04/30/2020 Ordering Physician: JOAQUINA BRISENO, Referring Physician: CATHERINE PERKINS Tech: ESAU Kirby APPROVED REPORT Test Type: Pharmacological Stress Nurse/Tech: Sruthi Avalos R.N. Test Indications: CAD Cardiac History: Family history, Hypertension, Diabetes, Stents x3 Medications: See Electronic Medical Record Medical History: See Electronic Medical Record Resting ECG: NSR with RBBB Resting Heart Rate: 95 bpm Resting Blood Pressure: 138/70mmHg Pretest Chest Pain: No chest pain Nurse/Tech Notes S1S2, lungs have coarse breath sounds Consent: The procedure was explained to the patient in lay terms. Informed consent was witnessed. Mukesh eout was entered into [employer]. History and Stress Test performed by Jose GreerN. Pharm. Details Pharmacologic stress testing was performed using 0.4mg per 5ml of regadenoson given intravenously ove r 7-10 seconds. Stress Symptoms Dyspnea POST EXERCISE Reason for Termination: Infusion complete Target HR: 122 Max HR: 158 bpm Max Blood Pressure: 136/69mmHg Blood Pressure response to exercise: Normal blood pressure response during stress. Chest Pain: No. Arrhythmia: No. ST Change: No. INTERPRETATION Stress EKG Conclusion: Baseline EKG showed sinus rhythm with right bundle branch block. Nondiagnosti c changes at peak stress. No arrhythmias. Imaging Protocol IMAGE PROTOCOL: Rest Tc-99m/stress Tc-99m 1 day Rest: Stress: Viability: Radiopharm.Tc99m ZrnmazdckBt79o Sestamibi Qzog13qRi 33mCi Duration 15min. 13min. Img Date 04/30/2020 04/30/2020 Inj-Img [id number]. 60min. Rest Admin Site:IV - Left WristAdministrator:ESAU Kirby Stress Admin Site: IV - Left WristAdministrator: WILL Camargo, ARRT (R)(N) STRESS DATA End Diast. Vol.69.0mlAv. Heart Ecgu470.0bpm LVEDV index BSA37.0mlCardiac Output0.0L/min End Syst. Vol.17.0mlCO Index BSA0.0L/min LVESV index BSA9.0mlMyocardial Pfez561.0g Eject. Hekfibyx37.0% Stress Scores Regional WT0.00Summed WT3.00 Regional WM0.00Summed WM2.00 Study quality was good. Left Ventricular size was Normal at Rest and Stress. Lung uptake was . Left Ventricular ejection fraction is 74%. The rest and stress images show normal perfusion, normal contraction and thickening. LV Perf. Quant 17 Seg. SSS9.00 17 Seg. SRS10.00 17 Seg. SDS2.00 Stress Defect Extent (% LAD)10.00Rest Defect Extent (% LAD)6.90Rev. Defect Extent (% LAD)0.00 Stress Defect Extent (% LCX) 13.80Rest Defect Extent (% LCX)7.50Rev. Defect Extent (% LCX)2.50 Stress Defect Extent (% RCA)38.90Rest Defect Extent (% RCA)31.10Rev. Defect Extent (% RCA)1.10 Stress Defect Extent (% JARRETT)23.50Rest Defect Extent (% JARRETT)17.80Rev. Defect Extent (% JARRETT)1.30 Conclusion 1. Regadenoson cardioisotope stress test did not show any evidence of ischemia or infarct. 2. Normal left ventricular systolic function with ejection fraction calculated at 74%. 3. Low risk for cardiac events. Signed by : Joaquina Briseno, Electronically Approved : 04/30/2020 13:56:34
--- NOTE | 2020-04-30 14:48 | RAD ---
MR#: [id number] Date of Study: 04/30/2020 Ordering Physician: JOAQUINA BRISENO, Referring Physician: JOAQUINA BRISENO Tech: Scout Everett RDMS, RVT APPROVED REPORT Patient Location: OUT-PATIENT Indications Edema LEG PAIN Risk Factors Hypertension Diabetes Surgery/Intervention Stent : Date : 06/27/2018 Site : LFT SFA VELOCITY AND DOPPLER WAVEFORM ANALYSIS RIGHT cm/secWaveformSeverity LEFT cm/secWaveform Severity pCFA 180.0BiphasicpCFA 273.0Triphasic dCFA dCFA Prof Fem Art. 93.0BiphasicProf Fem Art. 186.0Triphasic Fem Art Prox. 145.0BiphasicFem Art Prox. 198.0Triphasic Fem Art Mid. 153.0BiphasicFem Art Mid. 169.0Biphasic Fem Art Dist. 194.0BiphasicFem Art Dist. 103.0Monophasic Pop Art(Fossa) 68.0BiphasicPop Art(AK) 122.0Biphasic COAL PULVERIZING OPERATOR Prox. 81.0BiphasicPTA Prox. 32.0 COAL PULVERIZING OPERATOR Dist. 76.0BiphasicPTA Dist. 22.0Monophasic Per Art Prox. Per Art Prox. 60.0 ENRIQUE Prox. 88.0BiphasicATA Prox. 77.0Monophasic DPA 44BiphasicDPA 60Monophasic BYPASS GRAFT ANALYSIS RIGHT cm/secWaveform SeverityLEFT cm/secWaveformSeverity Proximal Proximal Findings Grayscale images of the right lower extremity arterial vessels demonstrate mild to moderate diffuse a therosclerosis. The peroneal artery is not well visualized. Overall color Doppler and spectral wave forms are suggestive of mild obstructive disease but no focal high-grade stenosis. On the left side elevated common femoral arterial velocities are noted could suggest more proximal di sease but likely mild to moderate in degree. There is two-vessel runoff below the knee. The anterio r tibial artery demonstrates monophasic waveforms. The peroneal artery and posterior tibial artery a re difficult to visualize but grossly appear to be patent with monophasic waveforms. Critical Notification Critical Value: No <Conclusion> #1. No significant right-sided lower extremity disease #2. Moderate left common femoral disease. Two-vessel runoff with probable severe diffuse disease in volving the posterior tibial artery. Signed by : Higinio Francisco, Electronically Approved : 04/30/2020 14:48:03
== END ==
LOC: NM 08:42
PROVIDERS: ATTEND Internal Medicine Cardiovascular Disease
DX: I25.10 Atherosclerotic heart disease of native coronary artery without angina pectoris (principal); I70.203 Unspecified atherosclerosis of native arteries of extremities, bilateral legs
CPT/HCPCS: 78452; 93017; 93925; A9500; J2785